=== PATIENT | female | born 1995 | race Caucasian/White ===

== ENCOUNTER 2020-04-22 15:52 | Emergency (ER) | payer BC ==
[~2020-04-22] VITALS: Ht 167.6 cm; Wt 74.0 kg
[2020-04-22 16:53] LABS: BASOPHILS % (AUTO) 0.7 % (0-1); EOSINOPHILS # (AUTO) 0.2 X10'3 (0-0.9); EOSINOPHILS % (AUTO) 3.6 % (0-6); HEMATOCRIT 37.7 % (35.0-45.0); HEMOGLOBIN 12.5 g/dl (12.0-16.0); LYMPHOCYTES # (AUTO) 1.7 X10'3 (1.1-4.8); LYMPHOCYTES % (AUTO) 25.4 % (21-51); MEAN CORPUSCULAR HEMOGLOBIN 29.5 PG (27.0-31.0); MEAN CORPUSCULAR HGB CONC 33.1 g/dL (33.0-36.5); MEAN CORPUSCULAR VOLUME 88.9 FL (78-98); MEAN PLATELET VOLUME 8.7 FL (7.4-10.4); MONOCYTES # (AUTO) 0.6 X10'3 (0-0.9); MONOCYTES % (AUTO) 9.8 % (2-12); NEUTROPHILS % (AUTO) 60.5 % (42-75); PLATELET COUNT 306 X10'3 (140-440); RED BLOOD COUNT 4.25 X10'6 (4.20-5.60); RED CELL DISTRIBUTION WIDTH 13.1 % (11.5-14.5); WHITE BLOOD COUNT 6.7 X10'3 (4.5-11.0)
[2020-04-22 17:08] LABS: ALANINE AMINOTRANSFERASE 15 U/L (12-78); ALBUMIN 3.9 G/DL (3.4-5.0); ALBUMIN/GLOBULIN RATIO 1.2 (1.1-1.5); ALKALINE PHOSPHATASE 67 IU/L (46-116); ANION GAP 4 (8-16); ASPARTATE AMINO TRANSFERASE 10 U/L (10-37); BILIRUBIN,TOTAL 0.3 MG/DL (0.1-1.0); BLOOD UREA NITROGEN 15 MG/DL (7-18); BUN/CREATININE RATIO 14.9 (6.6-38.0); CHLORIDE 108 MMOL/L (99-107); CREATININE 1.01 MG/DL (0.40-0.90); GLUCOSE 89 MG/DL (70-104); LIPASE 202 U/L (73-393); POTASSIUM 3.8 MMOL/L (3.5-5.1); SODIUM 141 MMOL/L (135-145); TOTAL CARBON DIOXIDE 29.3 MMOL/L (24-32); TOTAL PROTEIN 7.2 G/DL (6.4-8.2); eGFR 67 ML/MIN
[2020-04-22 18:25] LABS: HCG SERUM QL NEGATIVE
[2020-04-22 19:16] LABS: CLARITY,URINE SLIGHTLY CLOUDY (Clear); COLOR,URINE YELLOW (Yellow); GLUCOSE, URINE NEGATIVE (Neg); KETONES,URINE NEGATIVE (Neg); LEUKOCYTE ESTERASE ,URINE NEGATIVE (Neg); NITRITES, URINE NEGATIVE (Neg); OCCULT BLOOD,URINE NEGATIVE (Neg); PH,URINE 6.5 (4.8-8.0); PROTEIN,URINE NEGATIVE (Neg); UA COLLECTION TYPE CLN CATCH MIDSTREAM; UROBILINOGEN,URINE 0.2 E.U/dL (0.2-1.0)
[2020-04-22 19:24] LABS: BACTERIA,URINE NONE SEEN /HPF (Neg); RBC,URINE NONE SEEN /HPF (0-2); SQUAMOUS EPITHELIAL CELL,UR MODERATE /LPF (FEW); WBC,URINE NONE SEEN /HPF (0-4)
[2020-04-22 19:25] LABS: AMORPHOUS URATES 2+
[2020-04-22] MEDS ORDERED: ketorolac tromethamine 15mg/ml inj. IM ONE (20:00)
[2020-04-22 20:32] VITALS: BP 120/76
[2020-04-22 20:45] LABS: C-REACTIVE PROTEIN < 0.05 MG/DL (0.0-0.5)
== END 2020-04-22 20:33 | disposition home or self-care (01) ==
LOC: ER 15:52
DX: R10.31 Right lower quadrant pain (principal)
CPT/HCPCS: 36415; 74176; 80053; 81001; 83690; 84703; 85025; 86140; 96372; 99284; J1885

== ENCOUNTER 2021-07-28 22:25 | Emergency (ER) | payer BC, MEDICAID ==
[~2021-07-28] VITALS: Ht 167.6 cm; Wt 70.5 kg
--- NOTE | 2021-07-29 02:49 | NUR ---
PT ROOMED IN BED 1. ASSUMED CARE OF PT
[2021-07-29] MEDS ORDERED: PRED20TA PO (04:16)
[2021-07-29] MEDS ORDERED: METH-797 PO (04:16)
[2021-07-29] MEDS ORDERED: diazepam 5mg tablet PO ONE (04:20)
[2021-07-29] MEDS ORDERED: ondansetron 4mg rapidly disintigrating tab PO ONE (04:20)
[2021-07-29] MEDS ORDERED: HYDROcodone/acetaminophen 5mg/325mg tablet PO ONE (04:20)
[2021-07-29 04:54] VITALS: BP 115/78
== END 2021-07-29 04:55 | disposition home or self-care (01) ==
LOC: ER 22:25
DX: M54.41 Lumbago with sciatica, right side (principal); R20.0 Anesthesia of skin; Z79.899 Other long term (current) drug therapy
CPT/HCPCS: 99284

== ENCOUNTER 2025-05-06 02:13 | Emergency (ER) | payer MEDICAID ==
[~2025-05-06] VITALS: Ht 167.6 cm; Wt 68.0 kg
[~2025-05-06 02:13] MED LIST: METH-797 PO
--- NOTE | 2025-05-06 02:46 | RADIOLOGY REPORT ---
CHEST RADIOGRAPH Indication: CP Technique: Single frontal view of the chest was obtained COMPARISON: None FINDINGS: Lines and Tubes: None Lungs: Clear Pleura: No effusion. No pneumothorax. Cardiomediastinal contours: Unremarkable Bones: Unremarkable IMPRESSION: 1. No acute disease.
[2025-05-06 03:38] LABS: MEAN PLATELET VOLUME 8.0 FL (7.4-10.4); RED CELL DISTRIBUTION WIDTH 13.3 % (11.5-14.5)
[2025-05-06 04:02] LABS: CREATININE 0.69 MG/DL (0.40-0.90); PRO BRAIN NATRIURETIC PEPTIDE 66 PG/ML (0-125); TOTAL CARBON DIOXIDE 28.1 MMOL/L (24-32); eCRCL 111 ML/MIN; eGFR > 90 ML/MIN
[2025-05-06 04:12] LABS: ETHANOL < 10 MG/DL (<10)
--- NOTE | 2025-05-06 04:16 | Physician Documentation ---
History of Present Illness ~ Chief Complaint: ALOC Stated Complaint: EDSON Benson ALS Time Seen by MD: 02:15 Primary Medical Doctor: NONE Mode of Arrival: EMS HPI 30 year old female found altered at work. BIB EMS who noted pinpoint pupils and provided narcan with success. Patient arrives, somnolent but arousable, no complaints. Medication Reconciliation Allergies: Coded Allergies: No Known Allergies (Unverified , 07/28/21) Scheduled Methocarbamol (Methocarbamol), 1 TAB PO Q8H Past Medical History Past Medical History: No Pertinent History Past Surgical History: no surgical history Lives In: Home Occupation: student Review of Systems All Other Systems at this time: Reviewed and Negative Physical Exam Vital Signs: RN Vital Signs have been reviewed: Yes, Temperature: 98.1, Source: Oral, Heart Rate: 76, Respiratory Rate: 14, BP: 95/56, Pulse Oximetry: 95, Weight: 68.000 Physical Exam General: Alert, no apparent distress. Neck: Full range of motion. Extremities: Normal range of motion, no deformity. Neurologic: Oriented x4. Psychiatric: Normal mood and affect. Skin: Normal color, warm and dry. No edema, no ecchymosis. Progress Results/Orders Results/Orders Orders - PENNIE BECKER MD Chest,Single View (05/06/25 02:29) Monitor (05/06/25 02:19) Saline Lock (05/06/25 02:19) Oxygen (05/06/25 02:19) Electrocardiogram (05/06/25 02:19) Hs Troponin I W Calculations (05/06/25 04:19) Hs Troponin I W Calculations (05/06/25 05:19) Drug Screen, Urine (05/06/25 02:19) Completed Orders - PENNIE BECKER MD Chest,Single View (05/06/25 02:29) Cbc/Diff (05/06/25 02:19) BMP (05/06/25 02:19) PBNP (05/06/25 02:19) Hs Troponin I W Calculations (05/06/25 02:19) Ethanol (05/06/25 02:19) Vital Signs 05/06/25 05/06/25 05/06/25 05/06/25 02:15 02:21 02:25 03:29 Temp 98.1 98.1 98.1 Pulse 96 84 76 Resp 14 14 14 14 B/P (MAP) 111/75 106/71 (83) 95/56 (69) Pulse Ox 98 96 95 Laboratory Tests Test 05/06/25 03:25 White Blood Count 8.7 Red Blood Count 3.61 L Hemoglobin 10.8 L Hematocrit 32.0 L Mean Corpuscular Volume 88.8 Mean Corpuscular Hemoglobin 30.0 Mean Corpuscular Hemoglobin Concent 33.8 Red Cell Distribution Width 13.3 Platelet Count 254 Mean Platelet Volume 8.0 Neutrophils (%) (Auto) 69.4 Lymphocytes (%) (Auto) 19.8 L Monocytes (%) (Auto) 8.8 Eosinophils (%) (Auto) 1.7 Basophils (%) (Auto) 0.3 Neutrophils # (Auto) 6.1 Lymphocytes # (Auto) 1.7 Monocytes # (Auto) 0.8 Eosinophils # (Auto) 0.1 Basophils # (Auto) 0.0 CBC Comment Sodium Level 141 Potassium Level 3.9 Chloride Level 108 H Carbon Dioxide Level 28.1 Anion Gap 5 L Blood Urea Nitrogen 15 Creatinine 0.69 Estimated GFR/1.73 m2 > 90 BUN/Creatinine Ratio 21.7 H Glucose Level 122 H Calcium Level 8.0 L Troponin I High Sensitivity < 4 L Troponin I High Sens Percent Delta Troponin I Hi Sens Absolute Change Pro-B-Type Natriuretic Peptide 66 Albumin 3.3 L Chemistry Comments Ethyl Alcohol Level < 10 Medical Decision Making Additional information obtaine: N/A Findings 30 year old female with apparent opioid overdose. Observed, maintained airway and mental status, workup unremarkable, return precautions. Differential Dx:Considerations: Include: dehydration, Delirium Tr., DKA, hypercalcemia, HHNC, hyponatremia, closed head injury, C-spine injury, drug overdose, encephalopathy, ETOH intoxication, medication toxicity, infection - sepsis, infection - UTI, heart failure, respiratory failure Departure Disposition: HOME / SELF CARE / HOMELESS Impression: Primary Impression: Opioid overdose Discharge Instructions: Overdose, Adult Referrals: NO PRIMARY CARE PROVIDER (PCP) Education Educated: Patient Educated regarding: diagnosis, treatment, prognosis, need for follow up Signature Scribe Signature: . Attestation: PENNIE GUTIERREZ MD May 06, 2025 04:16
--- NOTE | 2025-05-06 05:30 | ELECTROCARDIOGRAPH REPORT ---
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 Jarrod Vogt Measurements Intervals [place] Rate: 88 P: 72 HI: 157 QRS: 73 QRSD: 105 T: 66 QT: 391 QTc: 473 Interpretive Statements Sinus rhythm Low voltage, precordial leads RSR' in V1 or V2, right VCD or RVH Electronically Signed On 05-06-2025 20:42:[address] Jarrod Vogt Please click the below link to view image of tracing.
[2025-05-06 05:41] LABS: URINE AMPHETAMINE SCREEN NEGATIVE (Neg); URINE BARBITUATE SCREEN NEGATIVE (Neg); URINE BENZODIAZEPINES SCREEN NEGATIVE (Neg); URINE CANNABINOID SCREEN NEGATIVE (Neg); URINE COCAINE SCREEN NEGATIVE (Neg); URINE METHADONE SCREEN NEGATIVE (Neg); URINE OPIATE SCREEN POSITIVE (Neg); URINE PHENCYCLIDINE SCREEN NEGATIVE (Neg)
[2025-05-06 06:03] VITALS: BP 105/66; PULSE 77; RESP 16; TEMP 98.1; O2SAT 96
== END 2025-05-06 06:06 | disposition home or self-care (01) ==
LOC: ER 02:14
DX: T40.2X1A Poisoning by other opioids, accidental (unintentional), initial encounter (principal); Z79.899 Other long term (current) drug therapy; Y93.89 Activity, other specified
CPT/HCPCS: 36415; 71045; 80048; 80305; 80320; 83880; 84484; 85025; 93005; 99285